=== PATIENT | female | born 1980 | race Two or more races ===

== ENCOUNTER 2024-04-26 16:13 | Emergency (ER) | payer MEDICAID ==
[~2024-04-26] VITALS: Ht 157.5 cm; Wt 94.3 kg
--- NOTE | 2024-04-26 16:34 | ED.PDOC ---
History of Present Illness HPI Comments 43 y.o female presents to the ED for a chief complaint of a fever associated with body chills, fatigue, back pain, cough x 3 days. Patient reports taking Tylenol for fever and last dosage was taken at 1300. Patient denies any chest pain, nausea, vomiting, diarrhea. Medical history of DM, hyperlipidemia and sei zures. Time Seen by MD: 16:30 Reviewed Notes: Nurses Notes, Medications, Allergies Allergies: Coded Allergies: NO KNOWN ALLERGIES (Unverified , 04/26/24) Information Source: Patient Mode of Arrival: Ambulatory Severity: Moderate Timing: Days (3) Duration: Since onset Past Medical History PAST MEDICAL HISTORY: DM, High Lipids, Seizures Surgical History: Denies all surgeries PATIENT CARE SPECIALIST History: Denies all PATIENT CARE SPECIALIST Hx Family History Family History: Reviewed,noncontributory to illness, No family hx of Cancer, No family hx of DM, No family hx of Heart sam, No family hx of HTN, No family hx ofKidney sam, No family hx of Liver sam, No family hx of Lung sam, No family hx of Stroke Social History Smoker: Non-Smoker Alcohol: Denies ETOH Use Drugs: Denies Drug Use Lives In: Home Constitutional: reports: chills, fever; denies: diaphoresis, fatigue, malaise, sweats, weakness, others EENTM: denies: blurred vision, double vision, ear bleeding, ear discharge, ear drainage, ear pain, ear ringing, eye pain, eye redness, hearing loss, mouth pain, mouth swelling, nasal discharge, nose bleeding, nose congestion, nose pain, photophobia, tearing, throat pain, throat swelling, voice changes, others Respiratory: reports: cough; denies: hemoptysis, orthopnea, SOB at rest, shortness of breath, SOB with excertion, stridor, wheezing, others Cardiovascular: denies: chest pain, dizzy spells, diaphoresis, Dyspnea on exertion, edema, irregular heart beat, left arm pain, lightheadedness, palpitations, PND, syncope, others Gastrointestinal: denies: abdomen distended, abdominal pain, blood streaked bowels, constipated, diarrhea, dysphagia, difficulty swallowing, hematemesis, melena, nausea, poor appetite, poor fluid intake, rectal bleeding, rectal pain, vomiting, others Genitourinary: denies: abnormal vagina bleeding, burning, dyspareunia, dysuria, flank pain, frequency, hematuria, incontinence, pain, , vagina discharge, urgency, others Neurological: denies: dizziness, fainting, headache, left sided numbness, left sided weakness, numbness, paresthesia, pre-existing deficit, right sided numbness, right sided weakness, seizure, speech problems, tingling, tremors, weakness, others Musculoskeletal: reports: back pain; denies: gout, joint pain, joint swelling, muscle pain, muscle stiffness, neck pain, others Integumetry: denies: bruises, change in color, change in hair/nails, dryness, laceration, lesions, lumps, rash, wounds, others Allergic/Immunocompromised: denies: Difficulty Healing, Frequent Infections, Hives, Itching, others Hematologic/Lymphatic: denies: anemia, blood clots, easy bleeding, easy b ruising, swollen glands, others Endocrine: denies: excessive hunger, excessive sweating, excessive thirst, excessive urination, flushing, intolerance to cold, intolerance to heat, unexplained weight gain, unexplained weight loss, others Psychiatric: denies: anxiety, bipolar disorder, depression, hopeless, panic disorder, schizophrenia, sleepless, suicidal, others All Other Systems: Reviewed and Negative Physical Exam General Appearance: No Apparent Distress, Normal HEENT: Normal ENT Inspection, Pharynx Normal, TMs Normal Neck: Full Range of Motion, Non-Tender, Normal, Normal Inspection Respiratory: Chest Non-Tender, Lungs Clear, No Accessory Muscle Use, No Respiratory Distress, Normal Breath Sounds Cardiovascular: No Edema, No JVD, No Murmur, No Gallop, Normal Peripheral Pulses, Regular Rate/Rhythm Breast Exam: Deferred Gastrointestinal: No Organomegaly, Non Tender, No Pulsatile Mass, Normal Bowel Sounds, Soft Genitalia: Deferred Pelvic: Deferred Rectal: Deferred Extremities: No calf tenderness, Normal capillary refill, Normal inspection, Normal range of motion, Non-tender, No pedal edema Musculoskeletal : Apperance: Normal Neurologic: Alert, card grinder helper II-XII nml as Tested, No Motor Deficits, Normal Affect, Normal Mood, No Sensory Deficits Cerebellar Function: Normal Reflexes: Normal Skin: Dry, Normal Color, Warm Lymphatic: No Adenopathy Was a procedure done? Was a procedure done?: No Differential Dx Considerations may include: Viral syndrome, Electrolyte imbalance, dehydration, URI , pneumonia X-Ray, Labs, Meds, VS Vital Signs Date Time Temp Pulse Resp B/P (MAP) Pulse Ox O2 Delivery O2 Flow Rate FiO2 04/26/24 16:38 16 96 Room Air* 0 21 04/26/24 16:34 99.3 121 16 125/72 (89) 96 Lab Test 04/26/24 17:00 Range/Units Urine Color Yellow Yellow Urine Clarity Turbid H Clear Urine pH 6.0 5.0-9.0 Urine Specific [place] 1.037 H 1.001-1.035 Urine Protein 1+ H Negative Urine Ketones Trace Negative Urine Blood Negative Negative /uL Urine Nitrite Negative Negative Urine Bilirubin Negative Negative Urine Urobilinogen Normal Negative mg/dL Urine Leukocyte Esterase Negative Negative /uL Urine RBC 3 0 - 4 /hpf Urine WBC 3 0 - 5 /hpf Urine Squamous Epithelial Cells Many <5 /hpf Urine Bacteria None seen None Seen /hpf Urine Mucus Few None Seen Urine Glucose Normal Normal mg/dL Urine Test Negative Negative Time of 1ST Reevaluation: 16:34 Reevaluation 1ST: Unchanged Time of 2ND Reevaluation: 18:10 Reevaluation 2ND: Improved Patient Education/Counseling: Diagnosis, Treatment Family Education/Counseling: No Family Present Additional Information Ordered Test: CXR, UA, LAB Reviewed Results: LAB including Beta HCG Interpreted results: CXR-Agreed with radiology- IMPRESSION:No acute cardiopulmonary disease. Discuss tx/ results: Patient and medical personnel Departure 1 Departure Time of Disposition: 18:10 Impression: Primary Impression: Viral syndrome Disposition: 01 HOME / SELF CARE / HOMELESS Condition: Good Discharged With: Self Critical Care Note Critical Care Time?: No Stability Stability form required: No I personally scribed for SADI STARK MD ([facility]) on 04/26/24 at 16:34. Electronically submitted by Kimberly Hemphill ([employer] ([employer])). I personally scribed for SADI STARK MD ([facility]) on 04/26/24 at 17:57. Electronically submitted by Kimberly Hemphill (Social IQ (Social Influence Quotient)). SADI STARK MD Apr 26, 2024 16:34
[2024-04-26 17:02] LABS: Urine Bacteria None Seen /hpf (None Seen)
[2024-04-26 17:10] LABS: Urine Blood Negative /uL (Negative); Urine Clarity Turbid (Clear); Urine Color Yellow (Yellow); Urine Mucus FEW (None Seen); Urine Protein, UAD 1+ (Negative); Urine Specific Gravity 1.037 (1.001-1.035); Urine Urobilinogen Normal (Negative); Urine WBC 3 /hpf (0 - 5)
--- NOTE | 2024-04-26 17:35 | DVH ---
CHEST RADIOGRAPH Indication: cough Technique: Single frontal view of the chest was obtained Comparison: None FINDINGS: Lines and Tubes: None Lungs: No focal consolidation. Pleura: No effusion. No pneumothorax. Cardiomediastinal contours: Unremarkable Bones: No acute osseous abnormality. IMPRESSION: No acute cardiopulmonary disease.
[2024-04-26 18:44] VITALS: BP 116/69; PULSE 105; RESP 17; TEMP 98.9; O2SAT 98
== END 2024-04-26 18:46 | disposition home or self-care (01) ==
LOC: ER 16:13
DX: B34.9 Viral infection, unspecified (principal); E11.9 Type 2 diabetes mellitus without complications; E78.5 Hyperlipidemia, unspecified
CPT/HCPCS: 71045; 81001; 81025